=== PATIENT | male | born 1995 | race Caucasian/White ===

== ENCOUNTER 2024-03-26 08:00 | Outpatient (CLI) | payer OTHER | END 2024-03-26 08:01 | disposition home or self-care (01) | LOC: PET 08:00 | PROVIDERS: ATTEND Internal Medicine Hematology & Oncology | DX: C49.A3 Gastrointestinal stromal tumor of small intestine (principal) | CPT/HCPCS: 78815; A9552 ==

== ENCOUNTER 2025-01-11 08:19 | Outpatient (CLI) | payer OTHER ==
[2025-01-11] MEDS ORDERED: Iopamidol 370 76% 100 ML VIAL ONE (10:08)
== END 2025-01-11 08:20 | disposition home or self-care (01) ==
LOC: CT 08:19
PROVIDERS: ATTEND Internal Medicine Hematology & Oncology
DX: C49.A3 Gastrointestinal stromal tumor of small intestine (principal); Z96.89 Presence of other specified functional implants
CPT/HCPCS: 71260; 74177; Q9967

== ENCOUNTER 2025-05-30 12:57 | Outpatient (CLI) | payer OTHER ==
[~2025-05-30 12:57] MED LIST: Iopamidol 370 76% 100 ML VIAL ONE
== END 2025-05-30 12:58 | disposition home or self-care (01) ==
LOC: CT 12:57
PROVIDERS: ATTEND Internal Medicine Hematology & Oncology
DX: C49.A3 Gastrointestinal stromal tumor of small intestine (principal)
CPT/HCPCS: 71260; 74177; Q9967